=== PATIENT | male | born 1965 | race African-American/Black ===

== ENCOUNTER 2018-08-09 21:18 | Emergency (ER) | payer OTHER ==
[~2018-08-09] VITALS: Ht 175.3 cm; Wt 68.0 kg
[2018-08-10 01:38] VITALS: BP 128/78
== END 2018-08-10 01:40 | disposition home or self-care (01) ==
LOC: ER 21:18
DX: S16.1XXA Strain of muscle, fascia and tendon at neck level, initial encounter (principal); R51 Headache; R20.2 Paresthesia of skin; F17.210 Nicotine dependence, cigarettes, uncomplicated; V89.2XXA Person injured in unspecified motor-vehicle accident, traffic, initial encounter; Y93.89 Activity, other specified; Y92.89 Other specified places as the place of occurrence of the external cause; Y99.8 Other external cause status